=== PATIENT | female | born 1935 | race Caucasian/White ===

== ENCOUNTER → 2020-06-14 11:33 | Outpatient (CLI) | payer MEDICARE, SELFPAY ==
--- NOTE | 2020-06-14 | DI.MRI.S_ITS ---
PROCEDURE: MR LUMBAR SPINE WO CON INDICATIONS: Lumbago with sciatica, left side TECHNIQUE: Noncontrast sagittal T1 spin echo and T2 fast echo, sagittal STIR, axial T1 and T2 fast spin echo through the lumbar spine. In cases with scoliosis, additional coronal T2 fast spin echo may be performed. COMPARISON: [facility], CR, XR LUMBAR SPINE 2 OR 3 VIEWS, 06/02/2020, 15:02. [facility], MR, L-SPINE WITHOUT CONTRAST, 09/18/2017, 12:57. [facility], MR, MR LUMBAR SPINE WITHOUT CONTRAST, 10/21/2018, 10:32. FINDINGS: Image quality: Excellent. Alignment and Curvature: Grade 1 anterolisthesis of L4 on L5 is again identified without change. No definitive pars defect is identified. Grade 1 retrolisthesis of T12 on L1 is also stable. L1 vertebroplasty changes are noted. Bone Marrow: Marrow is of normal overall signal. No acute vertebral body compression fractures. Spinal Cord: Conus medullaris terminates at the L1-L2 level. Visualized cord demonstrates normal signal and size. Paraspinous Soft Tissues: No paravertebral masses. Discs: Moderate to severe desiccation is present throughout the lumbar spine most notable at L4-5. T12-L1: Posterior disc osteophyte complex is present with moderate to severe spinal stenosis. Moderate to severe bilateral foraminal narrowing is present. No appreciable interval change. L1-L2: Mild disc bulge without spinal stenosis. Mild left foraminal narrowing with facet and ligamentum flavum hypertrophy. No interval progression. Previous right-sided foraminal narrowing is slightly less prominent. L2-L3: Mild disc bulge with mild spinal stenosis. [id number] left and minimal right foraminal narrowing is present with facet and ligamentum flavum hypertrophy. No interval change. L3-L4: Mild disc bulge with moderate to severe spinal stenosis. Moderate bilateral foraminal narrowing with facet and ligamentum flavum hypertrophy. No interval change. L4-L5: Mild disc bulge with moderate to severe spinal stenosis. There is severe bilateral foraminal narrowing with mild compression of the exiting nerve roots, minimally progressive compared to prior exam. L5-S1: Mild disc bulge with severe spinal stenosis. Moderate bilateral foraminal narrowing with facet hypertrophy. There is been interval development of what appears to be a left anterior facet joint cyst causing compromise of the left lateral canal measuring 5 mm. IMPRESSION: 1. Multilevel degenerative changes with areas of interval progression as above. 2. 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 Dictated by: Stephanie Jain M.D. on 06/14/2020 at 16:18 Approved by: Stephanie Jain M.D. on 06/14/2020 at 16:25
== END ==
PROVIDERS: Family Provider Family Medicine; PCP Family Medicine; Referring Provider Orthopaedic Surgery; Visit Provider Orthopaedic Surgery
DX: M54.42 Lumbago with sciatica, left side (principal); M47.816 Spondylosis without myelopathy or radiculopathy, lumbar region; M53.87 Other specified dorsopathies, lumbosacral region
CPT/HCPCS: 72148